=== PATIENT | female | born 1975 | race African-American/Black ===

== ENCOUNTER 2018-04-16 16:08 | Emergency (ER) | payer SELFPAY ==
[2018-04-16] MEDS ORDERED: predniSONE 20 MG TAB ONE (16:33)
== END 2018-04-16 16:39 | disposition home or self-care (01) ==
LOC: ERS 16:08
DX: R22.0 Localized swelling, mass and lump, head (principal); T49.8X5A Adverse effect of other topical agents, initial encounter; F32.9 Major depressive disorder, single episode, unspecified; Z79.899 Other long term (current) drug therapy
CPT/HCPCS: 99283; J7506